=== PATIENT | female | born 1930 | race Caucasian/White ===

== ENCOUNTER 2021-03-19 18:53 | Emergency (ER) | payer OTHER ==
[~2021-03-19] VITALS: Ht 172.7 cm; Wt 68.0 kg
[2021-03-19] MEDS ORDERED: METOCLOPRAMIDE HCL 10MG/2ML VIAL IV ONE (20:15)
[2021-03-19] MEDS ORDERED: SODIUM CHLORIDE 0.9% 500 ML IV ONE (20:15)
[2021-03-19 21:16] LABS: BASOPHILS % 0.9 % (0.0-2.0); HEMOGLOBIN. 11.8 g/dL (12.0-16.0); LYMPHOCYTES % 24.7 % (20.0-50.0); MEAN CORPUSCULAR HEMOGLOBIN 28.5 pg (28.0-32.0); MEAN CORPUSCULAR VOLUME 84.7 fL (81.0-99.0); MEAN PLATELET VOLUME 8.3 fl (7.4-10.4); MONOCYTES % 8.5 % (2.0-8.0); NEUTROPHILS % 64.9 % (40.0-76.0); PLATELET 278 x1000/uL (130-400); RED BLOOD CELL COUNT 4.13 mill/uL (4.2-5.4); RED CELL DISTRIBUTION WIDTH 14.8 % (11.6-14.6)
[2021-03-19 21:22] LABS: CHLORIDE 101 mEq/L (98-107)
[2021-03-19 21:41] LABS: CLARITY URINE CLEAR (CLEAR); COLOR URINE YELLOW (YELLOW); KETONES URINE NEGATIVE (NEGATIVE); LEUKOCYTE ESTERASE URINE 1+ (NEGATIVE); NITRITE URINE NEGATIVE (NEGATIVE); OCCULT BLOOD URINE NEGATIVE (NEGATIVE); PROTEIN URINE NEGATIVE (NEGATIVE); SPECIFIC GRAVITY URINE 1.007 (1.005-1.030); UROBILINOGEN URINE 0.2 E.U./dL (0.2-1.0)
[2021-03-20] MEDS ORDERED: CEPH500T MT (01:22)
[2021-03-20] MEDS ORDERED: ACETAMINOPHEN 325MG TABLET PO ONE (01:45)
[2021-03-20 01:52] VITALS: BP 143/75
== END 2021-03-20 02:15 | disposition home or self-care (01) ==
LOC: ER 18:53
DX: R51.9 Headache, unspecified (principal); I12.9 Hypertensive chronic kidney disease with stage 1 through stage 4 chronic kidney disease, or unspecified chronic kidney disease; N18.9 Chronic kidney disease, unspecified; J45.909 Unspecified asthma, uncomplicated; Z86.73 Personal history of transient ischemic attack (TIA), and cerebral infarction without residual deficits
CPT/HCPCS: 36415; 70450; 80053; 81003; 84484; 85025; 93005; 96361; 96374; 99285; J2765; J7040